=== PATIENT | female | born 2005 | race Caucasian/White ===

== ENCOUNTER 2023-08-27 21:17 | Emergency (ER) | payer MEDICAID, SELFPAY ==
[2023-08-27 21:21] VITALS: BP 171/91; PULSE 89; RESP 18; TEMP 36.3; O2SAT 100
--- NOTE | 2023-08-27 21:23 | ED.GENADUL_ITS ---
HPI General Date/Time Provider Initiated Documentation: 08/27/23 21:23. HPI Narrative: 18 year-old female presents to ED today by POV/ambulating with her boyfriend with a chief complaint of dysuria, frequency, urgency, foul-smelling urine with onset 4 days ago. Quality described as dysuria progressing to mild flank pain, chills, mild nausea, no radiation to vomiting, hematuria, cloudy urine, decrease in urine output, patient denies history of renal stones, does endorse history of childhood UTI. Severity is described as 5-6/10. Palliating factors include staying hydrated with natural diuretics like cranberry juice. Provoking factors include nothing specific. Patient not anticoagulated. Related Data Home Medications Medication Instructions Recorded Confirmed cefpodoxime 200 mg tablet 200 mg PO BID pyelonephritis 10 08/27/23 days #20 tabs Previous Rx's Medication Instructions Recorded cefpodoxime 200 mg tablet 200 mg PO BID pyelonephritis 10 08/27/23 days #20 tabs Review of Systems All systems reviewed & are unremarkable except as noted in HPI and below PFSH All Active Problems (Updated 08/27/23 @ 21:57 by MERRILL Judge) Pyelonephritis (Acute) Social History Smoking/Tobacco Use Status: Current every day Tobacco Type: e-cigarettes Smoking risk assessment performed?: Yes Alcohol Intake: current Alcohol Intake frequency: a few times a week Drug use: Occasionally Substance use type: marijuana Do you feel safe at home: Yes Do you feel safe in your relationship?: Yes Exam Narrative Exam Narrative: GENERAL APPEARANCE: Well-nourished, non-toxic, awake and alert, atraumatic, no acute distress. SKIN: Warm, pink, dry, intact, without rashes/lesions/ulcerations. HEAD: Normocephalic, atraumatic, normal hair distribution for gender/age. EYES: Pupils PERRLA, EOMs intact without nystagmus, normal conjunctiva, no exudates on lids/lashes. ENT: Nares patent, no circumoral cyanosis, no facial swelling NECK: Supple, trachea midline, painless cervical ROM. LUNGS/CHEST: Non-labored respirations, normal A/P diameter, symmetrical expansion, no chest wall deformity HEART (CV/PV): Regular rate and rhythm without murmur, no peripheral edema, no JVD. ABDOMEN: Soft, non-distended, no guarding, L>R CVA tenderness to percussion, mild suprapubic TTP, no peritoneal signs. MSK: Normal ROM, no swelling/deformity to bilateral UEs or LEs, moving all extremities without weakness, no cyanosis, spine midline without tenderness, normal curvature. NEURO: Mental Status AAOx4 - alert to person, place, time, events No facial droop, no forehead involvement. Motor: No focal weakness - strength 5/5 in bilateral UEs and LEs, proximal and distal, symmetric. Sensory: sensation intact to light touch globally. Gait normal: patient ambulated without ataxia into ED room. PSYCH: euthymic, cooperative, pleasant, appropriate speech Medical Decision Making This dictation utilizes [id number] dictation software and may contain unedited grammatical errors. 18 y/o F presents to ED today with a chief complaint of dysuria, progressing to flank pain over the past 4 days. Patient denies history of renal stones, endorses history UTI/kidney infection, states having mild chills/nausea, is mon ogamous. Patients' medical history: negative, otherwise healthy. Family and social history: noncontributory. Pertinent exam findings / vital signs include L>R CVA tenderness to percussion, non-peritoneal abdomen, nontoxic vitals. Differential / pathologies of concern include pyelonephritis, renal stone, not obstruction, UTI. Diagnostic studies of: -UA, offered further bloodwork and imaging, patient prefers UA and ABX trial. -shows likely UTI, + leuk esterase, nitrites, 10-20 WBCs Interventions of: -Outpatient Rx cefpodoxome, started first dose this evening. ED Course/Assessment/Plan: 18-year-old female presents with likely pyelonephritis with left CVA tenderness, dysuria, UA shows consistent findings for UTI likely bacterial ascended ureter for pyelonephritis. Patient's preference is to start antibiotics, strict return criteria for worsening over 3 days despite antibiotic treatment, recommend therapeutic dosing Tylenol and ibuprofen, recommend emergent imaging for any lack of urine output. Findings not consistent with obstructive uropathy, sepsis, acute abdomen. Disposition of Pyelonephritis. Patient verbalized understanding of the plan and return to ED criteria and engaged in shared decision making. Medical Records Medical records reviewed: Yes I reviewed the patient's medical records. Lab Data Lab results reviewed: Yes I reviewed the patient's lab results. Labs: 08/27/23 21:26 Urine - Reflex from Ua Urine Culture - Pending Laboratory Tests Range/Units 08/27/23 21:26 Urine Color (Yellow) Yellow Urine Clarity (Clear) Clear Urine pH (5-8) 6.5 Ur Specific [place] (1.005-1.025) 1.010 Urine Protein (Negative) mg/dL Trace H Urine Ketones (Negative) mg/dL Negative Urine Blood (Negative) Moderate H Urine Nitrite (Negative) Positive H Urine Bilirubin (Negative) Negative Urine Urobilinogen (Up to 0.2) mg/dL 0.2 Ur Leukocyte Esterase (Negative) Small H Urine RBC (0-2) HPF 5-10 H Urine WBC (0-5) HPF 10-20 H Ur Epithelial Cells (Negative) HPF Few Urine Crystals (Negative) HPF Negative Urine Bacteria (Negative) HPF Few Urine Casts (Negative) LPF Negative Urine Mucus (Negative) Negative Ur Culture Indicated? Yes Urine Glucose (Negative) mg/dL Negative Quality:SDOH Health Related Social Needs: No Data to Display Discharge Plan Disposition Patient Disposition: Home Discharge Details Clinical Impression: Pyelonephritis Primary Care Provider: Araceli,Local ED Provider: Chuck Luo Home Meds and New Rx's Prescriptions: New cefpodoxime 200 mg tablet 200 mg PO BID 10 Days Qty: 20 0RF Rx Instructions: must administer with a meal/food Discharge Instructions Instructions: Cefpodoxime Proxetil (By mouth), Urinary Tract Infection in Women (ED) Additional Instructions: You were seen in the emergency department for your 4-day onset of UTI symptoms now having flank pain left worse than right. It is likely that you could have the start of a pyelonephritis, your vital signs are stable, I think we can catch this early enough to treat with antibiotic tablets which we started tonight, please picker tender helper the rest at your pharmacy tomorrow. Please carefully watch her symptoms and return if you are getting worse by day 3 on antibiotics. Stay well-hydrated. Please use therapeutic dosing of Tylenol (acetamenophen) & Advil (ibuprofen) in an alternating fashion as follows: Take 1000mg of Tylenol every 6 hours without missing doses- that is 4 times per day. Ald[place] in between the Tylenol dosings, take 400-600mg of Advil also on a 6 hour schedule, that is also 4 times per day. The daily maximum dosing of Tylenol is 4000mg, and the daily maximum dosing of Advil is 2400mg. This is safe to do for weeks. Please note that some common cold medications & prescription pain medications may contain acetamenophen and you need to read OTC drug labels and factor that in to maximum daily dosings. Discharge Data Discharge Date/Time-TO BE ENTERED AT DEPARTURE: 08/27/23 22:06
[2023-08-27 21:41] LABS: Bilirubin Negative (Negative); Blood Moderate (Negative); Clarity Clear (Clear); Glucose Negative (Negative); Ketones Negative (Negative); Leukocyte Esterase Small (Negative); Nitrite Positive (Negative); Urobilinogen 0.2 mg/dL (Up to 0.2); pH 6.5 (5-8)
[2023-08-27 21:46] LABS: Epithelial Cells Few HPF (Negative)
[2023-08-27 21:47] LABS: Bacteria Few HPF (Negative); C & S Indicated? Yes; Casts Negative LPF (Negative); Crystals Negative HPF (Negative); Mucus Negative (Negative)
[2023-08-27] MEDS: Cefpodoxime 200 MG TAB PO (22:06)
== END 2023-08-27 22:06 | disposition home or self-care (01) ==
PROVIDERS: Emergency Provider Physician Assistant
DX: R10.9 Unspecified abdominal pain; R30.0 Dysuria; R11.0 Nausea; N12 Tubulo-interstitial nephritis, not specified as acute or chronic; Z87.440 Personal history of urinary (tract) infections
CPT/HCPCS: 81025; 87077; 99284; 81003; 81015; 87086; 87186; 99283